=== PATIENT | female | born 1935 | race Caucasian/White ===

== ENCOUNTER → 2017-12-30 | Day surgery (SDC) | payer OTHER, MEDICARE ==
--- NOTE | 2017-12-29 09:32 | History & Physical Pre-Op ---
General Information and HPI History of Present Illness: Patient noted large mass right lower quadrant. Was seen by PCP who diagnosed bowel containing hernia. CT confirms above. Patient is asymptomatic. No pain or change to bowel or bladder habits. No n/v. History of sigmoid colectomy and small bowel resection for diverticulitis and benign tumor respectively. Allergies/Medications Allergies: Coded Allergies: Penicillins (HIVES 12/28/17) hops (HIVES 12/28/17) lactase (From [facility]) (UPSET STOMACH 12/28/17) morphine (HIV12/28/17) Uncoded Allergies: contrast dye ([facility] 12/28/17) Past History Medical History Cardiovascular: hypertension, hyperlipidemia Gastrointestinal: diverticulitis, GERD Musculoskeletal: osteoarthritis Surgical History Pertinent Surgical History: colon resection, hysterectomy, knee replacement ( bilateral), bilateral carpal tunnel, anal fissure bladder repair bunions Past Family/Social History Psychosocial History Smoking Status: Never Smoked ETOH Use: denies use Illicit Drug Use: denies illicit drug use Review of Systems Review of Systems: Patient reports shortness of breath but reports no cough, no wheezing, and no coughing up blood. She reports muscle aches and arthralgias/joint pain but reports no muscle weakness and no back pain. She reports no fatigue, no fever, no night sweats, no significant weight gain, no significant weight loss, and no exercise intolerance. She reports no abnormal moles, no jaundice, no hives, no eczema, and no rashes. She reports no swollen glands and no neck stiffness. She reports no chest pain, no arm pain on exertion, no shortness of breath when walking, no shortness of breath when lying down, no palpitations, and no leg swelling. She reports no abdominal pain, no vomiting, no vomiting blood, normal appetite, no diarrhea, no constipation, no rectal bleeding, and no history of GERD. She reports no incontinence, no difficulty urinating, no hematuria, and no increased frequency. Exam & Diagnostic Data Physical Exam: Patient is an 82-year-old female. Constitutional: General Appearance: healthy-appearing, well-developed, and overweight. Level of Distress: no acute distress. Ambulation: ambulating normally. Head: Head: normocephalic and atraumatic. Cardiovascular: Heart Auscultation: normal S1 and S2, no rubs or gallops, and regular rate and rhythm and murmur. Lungs: Respiratory effort: no dyspnea. Percussion: no dullness, flatness, or hyperresonance. Auscultation: no wheezing, rales/crackles, or rhonchi and breath sounds normal, good air movement, and clear to auscultation. Back: Thoracolumbar Appearance: normal curvature. Abdomen: Inspection and Palpation: no tenderness, guarding, masses, rebound tenderness, or CVA tenderness and soft and non-distended. Bowel Sounds: normal. Liver: non-tender and no hepatomegaly. Spleen: non-tender and no splenomegaly. Hernia: incisional (large bowel containing hernia to right of midline. Not reducible. nontender.). Skin: Inspection and palpation: no rash, lesions, ulcer, induration, nodules, jaundice, or abnormal nevi and good turgor. Musculoskeletal:: Extremities: no cyanosis, varicosities, or palpable cord and edema. Motor Strength and Tone: normal tone and motor strength; healed knee replacement scars.. Joints, Bones, and Muscles: no contractures, malalignment, tenderness, or bony abnormalities and normal movement of all extremities. Assessment/Plan Assessment/Plan: 1. Incisional hernia with obstruction but no gangrene - Incarcerated bowel containing hernia should be repaired as soon as feasible. CT images viewed, there are two defects, one fat containing and the other, bowel. Recommend robotic incisional hernia repair with mesh. Preop risk assessment with cardiology. K43.0: Incisional hernia with obstruction, without gangrene Discussion Notes Discussed the pathophysiology of hernias and the need for mesh repair. she understands the permanent nature of mesh. Discussed the risks of surgery including recurrence of the hernia, bleeding and infection.she understands that if mesh infection occurs, removal will necessary. He understands the need for general anesthesia. As Ranked By This Provider Problem List: 1. Incarcerated incisional hernia
[~2017-12-30] VITALS: Ht 147.3 cm; Wt 78.9 kg
[~2017-12-30] MED LIST: TYLENOL WITH C1 EACH PO
--- NOTE | 2017-12-30 13:20 | Operative Report ---
Operative/Inv Procedure Report Surgery Date: 12/30/17 Name of Procedure: Robotic assisted laparoscopic incarcerated incisional hernia repair with mesh Pre-Operative Diagnosis: Incarcerated incisional hernia Post-Operative Diagnosis: Same Estimated Blood Loss: scant Surgeon/Screening Nurse: Michael BARBA,Johnie Kumar/Vasu LAURENT Anesthesia: general endotracheal tube Implants: 15 x 20 cm Hiwasse Synecore Operative/Procedure Note Note: After consent patient brought to the operating room laid supine. General anesthesia was obtained and her abdomen is prepped and draped. Skin left upper quadrant was observed local anesthesia and incision made sharply at Bajwa's point. Using an optical trocar, 8 mm port was placed under direct vision. Pneumoperitoneum was achieved. 2, 8 mm ports were placed in the epigastric and right upper quadrant region. The robot was then docked and instruments placed under direct vision. I broke scrub and went to the console. There were innumerable tiny fascial defects throughout the midline incision closure. There were a number of larger ones some of which contained bowel loops on preoperative CT. All of the large defects were infraumbilical. We began by taking down the peritoneum with scissor cautery. However there was not enough peritoneum to create a preperitoneal flap. I therefore aborted that approach and proceeded with IPOM dissection. Numerous incarcerated portions of omentum were in the small suture hole defects. These were taken down with cautery and blunt dissection. We then finally came down to 2 large defects one on each side of the mid line. Left side was a little bit smaller and was delivered after circumferentially dissecting the area with scissor and cautery. It was composed of omentum and reflected inferiorly. The right-sided one was much larger. Preoperative CT scan showed a piece of small bowel in it. I could not see it as there was mostly omentum. Circumferentially dissected the omentum in a similar fashion to the left side and reflected inferiorly. We then took down the preperitoneal fat in the suprapubic region. I then closed the large fascial defects with running 0 absorbable V lock suture. They were closed separately. The other tiny fascial defects were left alone. Once I was happy with the dissection I placed a ruler into the cavity and measured the defect. To get proper overlap this required 20 x 15 cm mesh. The Hiwasse-Justin mesh was then chosen marked for orientation and placed in the perineal cavity. In order to do so we had upsized the right upper quadrant port to a 12 port. The ruler was removed. We then placed the mesh over the defects. The mesh was tacked to the abdominal wall in 4 quadrants with 2-0V lock suture, absorbable. I then ran the mesh to the fascia in between each suture. Sutures then trimmed and extracted from the perineal cavity. Final result was a nice underlay of mesh. The ports were then extracted and gas evacuated. The fascia left upper quadrant was closed with 0 Vicryl suture. Skin incisions closed with 4-0 Vicryl. Steri-Strips and sterile dressing applied. Sponge and needle counts are correct. CC: Nadine Kim DO
== END ==
LOC: STS 03:15
DX: K43.0 Incisional hernia with obstruction, without gangrene (principal); I10 Essential (primary) hypertension; E78.5 Hyperlipidemia, unspecified; Z90.49 Acquired absence of other specified parts of digestive tract; K21.9 Gastro-esophageal reflux disease without esophagitis; Z85.828 Personal history of other malignant neoplasm of skin; Z86.14 Personal history of Methicillin resistant Staphylococcus aureus infection
CPT/HCPCS: 49655; 64488; S2900; C1781; C9290; J0131; J1100; J1885; J2250; J2405; J3490